=== PATIENT | male | born 1990 | race Native Hawaiian/Other Pacific Islander ===

== ENCOUNTER 2021-03-15 20:35 | Emergency (ER) | payer OTHER ==
[~2021-03-15] VITALS: Ht 175.3 cm; Wt 90.7 kg
[2021-03-15 21:40] LABS: POTASSIUM 3.6 mmol/L (3.6-5.2)
[2021-03-15 21:45] LABS: PLATELET COUNT 255 K/uL (142-355)
[2021-03-16 00:44] VITALS: BP 165/72; TEMP 98.2
== END 2021-03-16 00:55 | disposition still patient (30) ==
LOC: ED 20:35
PROVIDERS: Hospitalist
DX: F25.8 Other schizoaffective disorders (principal); F19.10 Other psychoactive substance abuse, uncomplicated; Z20.822 Contact with and (suspected) exposure to COVID-19
CPT/HCPCS: 36415; 80053; 80307; 80320; 80329; 81000; 85027; 87635; 93005; 96372; 99285; J0696; J2405; U0003